=== PATIENT | female | born 2000 | race Caucasian/White ===

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

== ENCOUNTER → 2019-03-03 | Outpatient (CLI) | payer BC ==
[2019-03-06 09:09] LABS: CHLAMYDIA TRACHOMATIS, NAA Positive (Negative); NEISSERIA GONORRHOEAE, NAA Negative (Negative)
== END ==
LOC: FB.CLBR 15:33
PROVIDERS: ATTEND Nurse Practitioner Family
DX: Z11.3 Encounter for screening for infections with a predominantly sexual mode of transmission (principal); A59.01 Trichomonal vulvovaginitis
CPT/HCPCS: 87210; 87491; 87591